=== PATIENT | female | born 1955 | race Two or more races ===

== ENCOUNTER 2024-11-10 22:24 | Emergency (ER) | payer MEDICARE, OTHER ==
[~2024-11-10] VITALS: Ht 162.6 cm; Wt 104.3 kg
--- NOTE | 2024-11-10 22:49 | ECG ---
[facility] Test Date: 2024-11-10 Test Time: 22:46:07 Pat Name: ERIKA ROSE Department: Room: Gender: F Acquisition Advisor: IVETTE : 1955 Requested By: JOCELYNE QUINTANILLA Order Number: [id number] Reading MD: Ken Huddleston Measurements Intervals [place] Rate: 68 P: 54 TX: 135 QRS: 101 QRSD: 86 T: 14 QT: 430 QTc: 458 Interpretive Statements Sinus rhythm Right axis deviation Low voltage, precordial leads Borderline T abnormalities, anterior leads Electronically Signed On 11-13-2024 22:09:53 PDT by Ken Huddleston Please click the below link to view image of tracing.
--- NOTE | 2024-11-10 22:52 | ED.PDOC ---
History of Present Illness HPI Comments 68-year-old female came to emergency room due the upper extremity pain. Patient denies any medical problems, nor does she take any medications. States she has been having throat pain/ tightness for over a week. Woke up today with tightness over her left arm. Denies any acute chest pains or shortness of breath. 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 Family History Family History: Reviewed,noncontributory to illness Social History Smoker: Non-Smoker Alcohol: Denies ETOH Use Drugs: Denies Drug Use Lives In: Home Constitutional: denies: chills, diaphoresis, fatigue, fever, malaise, sweats, weakness, others EENTM: reports: throat pain; denies: blurred vision, double vision, ear bleeding, ear discharge, ear drainage, ear pain, ear ringing, eye pain, eye redness, hearing loss, mouth pain, mouth swelling, nasal discharge, nose bleeding, nose congestion, nose pain, photophobia, tearing, throat swelling, voice changes, others Respiratory: denies: cough, hemoptysis, orthopnea, SOB at rest, shortness of breath, SOB with excertion, stridor, wheezing, others Cardiovascular: reports: left arm pain; denies: chest pain, dizzy spells, diaphoresis, Dyspnea on exertion, edema, irregular heart beat, lightheadedness, palpitations, PND, syncope, others Gastrointestinal: denies: abdomen distended, abdominal pain, blood streaked bowels, constipated, diarrhea, dysphagia, difficulty swallowing, hematemesis, melena, nausea, poor appetite, poor fluid intake, rectal bleeding, rectal pain, vomiting, others Genitourinary: denies: abnormal vagina bleeding, burning, dyspareunia, dysuria, flank pain, frequency, hematuria, incontinence, pain, , vagina discharge, urgency, others Neurological: denies: dizziness, fainting, headache, left sided numbness, left sided weakness, numbness, paresthesia, pre-existing deficit, right sided numbness, right sided weakness, seizure, speech problems, tingling, tremors, weakness, others Musculoskeletal: denies: back pain, gout, joint pain, joint swelling, muscle pain, muscle stiffness, neck pain, others Integumetry: denies: bruises, change in color, change in hair/nails, dryness, laceration, lesions, lumps, rash, wounds, others Allergic/Immunocompromised: denies: Difficulty Healing, Frequent Infections, Hives, Itching, others Hematologic/Lymphatic: denies: anemia, blood clots, easy bleeding, easy bruising, swollen glands, others Endocrine: denies: excessive hunger, excessive sweating, excessive thirst, excessive urination, flushing, intolerance to cold, intolerance to heat, unexplained weight gain, unexplained weight loss, others Psychiatric: denies: anxiety, bipolar disorder, depression, hopeless, panic disorder, schizophrenia, sleepless, suicidal, others Physical Exam General Appearance: No Apparent Distress, Normal HEENT: Normal ENT Inspection, Pharynx Normal, TMs Normal Neck: Full Range of Motion, Non-Tender, Normal, Normal Inspection Respiratory: Chest Non-Tender, Lungs Clear, No Accessory Muscle Use, No Respiratory Distress, Normal Breath Sounds Cardiovascular: No Edema, No JVD, No Murmur, No Gallop, Normal Peripheral Pulses, Regular Rate/Rhythm Breast Exam: Deferred Gastrointestinal: No Organomegaly, Non Tender, No Pulsatile Mass, Normal Bowel Sounds, Soft Genitalia: Deferred Pelvic: Deferred Rectal: Deferred Extremities: No calf tenderness, Normal capillary refill, Normal inspection, Normal range of motion, Non-tender, No pedal edema Musculoskeletal : Apperance: Normal Neurologic: Alert, mobile home set up person II-XII nml as Tested, No Motor Deficits, Normal Affect, Normal Mood, No Sensory Deficits Cerebellar Function: Normal Reflexes: Normal Skin: Dry, Normal Color, Warm Lymphatic: No Adenopathy Was a procedure done? Was a procedure done?: No EKG EKG : Pulse Rate (adult): 68 Hepler: RAD Cardiac Rhythm: NSR Differential Dx Considerations may include: Anemia, electrolyte imbalance, coronary artery disease X-Ray, Labs, Meds, VS Vital Signs Date Time Temp Pulse Resp B/P (MAP) Pulse Ox O2 Delivery O2 Flow Rate FiO2 11/11/24 01:58 95 Room Air* 0 21 11/11/24 01:57 98.6 71 18 151/96 (114) 95 98.6 11/10/24 22:52 68 11/10/24 22:46 68 11/10/24 22:35 98.2 70 18 185/93 99 98.2 Lab Test 11/11/24 00:39 11/10/24 23:16 Range/Units Troponin I High Sensitivity < 3 L < 3 L </=34 ng/L White Blood Count 5.5 4.4-10.8 10^3/uL Red Blood Count 5.16 4.0-5.20 10^6/uL Hemoglobin 14.8 12.2-16.2 g/dL Hematocrit 43.5 36.0-46.0 % Mean Corpuscular Volume 84.2 80.0-100.0 fL Mean Corpuscular Hemoglobin 28.7 28.0-32.0 pg Mean Corpuscular Hemoglobin Concent 34.1 32.0-36.0 g/dL Red Cell Distribution Width 14.0 11.8-14.3 % Platelet Count 151 140-450 10^3/uL Mean Platelet Volume 9.6 6.9-10.8 fL Neutrophils (%) (Auto) 52.1 37.0-80.0 % Lymphocytes (%) (Auto) 37.8 10.0-50.0 % Monocytes (%) (Auto) 7.2 0.0-12.0 % Eosinophils (%) (Auto) 2.4 0.0-7.0 % Basophils (%) (Auto) 0.5 0.0-2.0 % Neutrophils # (Auto) 2.8 1.6-8.6 10 ^3/uL Lymphocytes # (Auto) 2.1 0.4-5.4 10 ^3/uL Monocytes # (Auto) 0.4 0-1.3 10 ^3/uL Eosinophils # (Auto) 0.1 0-0.8 10 ^3/uL Basophils # (Auto) 0 0-0.2 10 ^3/uL Nucleated Red Blood Cells 0.1 % Sodium Level 146 H 136-145 mmol/L Potassium Level 3.5 3.5-5.1 mmol/L Chloride Level 110 H 98-107 mmol/L Carbon Dioxide Level 25 20-31 mmol/L Anion Gap 11 5-15 Blood Urea Nitrogen 12 9-23 mg/dL Creatinine 0.75 0.550-1.02 mg/dL Glomerular Filtration Rate Calc 87 >90 mL/min BUN/Creatinine Ratio 16.0 10.0-20.0 Serum Glucose 108 H 74-106 mg/dL Calcium Level 9.2 8.7-10.4 mg/dL Magnesium Level 2.1 1.6-2.6 mg/dL Total Bilirubin 0.4 0.2-1.0 mg/dL Aspartate Amino Transferase (AST) 27 13-40 U/L Alanine Aminotransferase (ALT) 46 H 7-40 U/L Alkaline Phosphatase 99 46-116 U/L Total Protein 6.5 5.7-8.2 g/dL Albumin 4.3 3.2-4.8 g/dL CHEST RADIOGRAPH Indication: chest pain Technique: Single frontal view of the chest was obtained Comparison: None FINDINGS/IMPRESSION: The lungs are clear. The cardiomediastinal silhouette is unremarkable. No pleural effusion or pneumothorax. No acute osseous abnormality. Time of 1ST Reevaluation: 22:48 Reevaluation 1ST: Unchanged Patient Education/Counseling: Diagnosis, Treatment Family Education/Counseling: No Family Present SEPSIS Sepsis Screen Date sepsis recognized/suspect: Nov 10, 2024 Time Sepsis recognized/suspect: 2238 Recent Procedure: No On Antibiotic Therapy: No Respiratory Rate >20: No Heart Rate >90: No Temp<36 C (96.8 F) or >38.3 C: No SBP <90 or MAP <65 mmHG: No New Acute Mental Status Change: No Is the patient on CPAP, BIPAP,: No Physician Orders Chest Xray 1 View (11/10/24 22:47) Vital Signs Date Time Temp Pulse Resp B/P (MAP) Pulse Ox O2 Delivery O2 Flow Rate FiO2 11/11/24 01:58 95 Room Air* 0 21 11/11/24 01:57 98.6 71 18 151/96 (114) 95 98.6 11/10/24 22:52 68 11/10/24 22:46 68 11/10/24 22:35 98.2 70 18 185/93 99 98.2 Laboratory Tests Test 11/10/24 23:16 White Blood Count 5.5 10^3/uL (4.4-10.8) Departure 1 Departure Time of Disposition: 00:30 Impression: Primary Impression: Left arm pain Additional Impression: Throat tightness Disposition: HOME / SELF CARE / HOMELESS Condition: Stable Discharged With: Self Critical Care Note Critical Care Time?: No Stability Stability form required: No Heart Score Heart Score: Heart Score Response (Comments) Value History Slightly Suspicious 0 EKG Normal 0 Age >65 2 Risk Factors 1 or 2 risk factors 1 Troponin Normal limit 0 Total 3 I personally scribed for JOCELYNE QUINTANILLA MD ([email or web address]) on 11/10/24 at 22:52. Electronically submitted by Duke Shafer ([employer]). I personally scribed for JOCELYNE QUINTANILLA MD ([email or web address]) on 11/11/24 at 00:52. Electronically submitted by Duke Shafer ([employer]). JOCELYNE QUINTANILLA MD Nov 10, 2024 22:52
[2024-11-10 23:46] LABS: Hematocrit 43.5 % (36.0-46.0); Hemoglobin 14.8 g/dL (12.2-16.2); Mean Corpuscular Hemoglobin 28.7 pg (28.0-32.0); Mean Corpuscular Volume 84.2 fL (80.0-100.0); Nucleated Red Blood Cells % 0.1 %
[2024-11-10 23:54] LABS: Albumin 4.3 g/dL (3.2-4.8); Alkaline Phosphatase 99 U/L (46-116); BUN/Creatinine Ratio 16.0 (10.0-20.0); Blood Urea Nitrogen 12 mg/dL (9-23); Calcium 9.2 mg/dL (8.7-10.4); Carbon Dioxide 25 mmol/L (20-31); Magnesium 2.1 mg/dL (1.6-2.6); Total Protein 6.5 g/dL (5.7-8.2)
[2024-11-10 23:55] LABS: Bilirubin, Total 0.4 mg/dL (0.2-1.0)
[2024-11-10 23:56] LABS: Alanine Aminotransferase 46 U/L (7-40); Glucose 108 mg/dL (74-106)
[2024-11-11] LABS: Anion Gap 11 (5-15)
[2024-11-11 00:04] LABS: Chloride 110 mmol/L (98-107); Potassium 3.5 mmol/L (3.5-5.1); Sodium 146 mmol/L (136-145)
--- NOTE | 2024-11-11 00:28 | DVH ---
CHEST RADIOGRAPH Indication: chest pain Technique: Single frontal view of the chest was obtained Comparison: None FINDINGS/IMPRESSION: The lungs are clear. The cardiomediastinal silhouette is unremarkable. No pleural effusion or pneumo thorax. No acute osseous abnormality.
[2024-11-11 01:57] VITALS: BP 151/96; PULSE 71; RESP 18; TEMP 98.6
[2024-11-11 01:58] VITALS: O2SAT 95
== END 2024-11-11 02:00 | disposition home or self-care (01) ==
LOC: ER 22:24
DX: R07.0 Pain in throat (principal); M79.622 Pain in left upper arm; Z86.2 Personal history of diseases of the blood and blood-forming organs and certain disorders involving the immune mechanism; Z79.899 Other long term (current) drug therapy
CPT/HCPCS: 36415; 71045; 80053; 83735; 84484; 85025; 93005